=== PATIENT | male | born 1970 | race African-American/Black ===

== ENCOUNTER 2020-03-16 19:16 | Emergency (ER) | payer SELFPAY ==
[~2020-03-16] VITALS: Ht 180.3 cm; Wt 93.0 kg
[2020-03-16 19:16] VITALS: BP_SYST 122
[2020-03-16] MEDS ORDERED: ACETAMINOPHEN 500 MG TABLET PO ONE (21:15)
[2020-03-16 22:09] VITALS: BP_SYST 126
== END 2020-03-16 22:09 | disposition home or self-care (01) ==
LOC: SED 19:16
DX: S86.002A Unspecified injury of left Achilles tendon, initial encounter (principal); X50.0XXA Overexertion from strenuous movement or load, initial encounter; Y93.67 Activity, basketball; Y92.89 Other specified places as the place of occurrence of the external cause; Y99.8 Other external cause status
CPT/HCPCS: 99284